=== PATIENT | female | born 1990 | race Caucasian/White ===

== ENCOUNTER 2016-08-05 01:10 | Emergency (ER) | payer OTHER ==
[~2016-08-05] VITALS: Ht 180.3 cm; Wt 54.4 kg
--- NOTE | ~2016-08-05 | EKG ---
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
[~2016-08-05 01:10] MED LIST: NORCO 5-325 TA1 EACH PO
[2016-08-05 01:33] LABS: URINE BILIRUBIN NEGATIVE (Negative); URINE BLOOD TRACE (Negative); URINE COLOR YELLOW; URINE GLUCOSE-RANDOM* NEGATIVE (Negative); URINE KETONES NEGATIVE (Negative); URINE LEUKOCYTES-REFLEX NEGATIVE (Negative); URINE PROTEIN (DIPSTICK) NEGATIVE (Negative); URINE SPECIFIC GRAVITY <= 1.005 (1.003-1.035); URINE UROBILINOGEN 0.2 E.U./dl (0.2-1.0)
[2016-08-05 01:41] LABS: ABSOLUTE NEUTROPHILS 4.6 thou/uL (1.4-8.2); BASOPHILS 1.3 % (0.0-2.0); EOSINOPHILS 8.5 % (0.0-3.0); HEMATOCRIT 39.9 % (37.0-47.0); HEMOGLOBIN 13.5 gm/dL (12.0-15.0); LYMPHOCYTES 38.7 % (24.0-44.0); MCH 31.1 pg (26.0-34.0); MCHC 33.9 g/dL (28.0-37.0); MCV 91.8 fL (80.0-100.0); PLATELET COUNT 199 thou/uL (150-400); POLYS 45.5 % (36.0-66.0); RBC 4.34 mil/uL (4.20-5.00); RDW 13.1 % (10.5-14.5); WBC 10.1 thou/uL (4.0-11.0)
[2016-08-05 01:46] LABS: MANUAL DIFF NO
[2016-08-05 01:49] LABS: ANION GAP 8 mmol/L (7-16); BUN 14 mg/dL (7-18); CALCIUM 8.8 mg/dL (8.5-10.1); CHLORIDE 105 mmol/L (98-107); CO2 28 mmol/L (21-32); CREATININE 0.8 mg/dL (0.6-1.3); GLUCOSE 124 mg/dL (70-99); POTASSIUM 3.1 mmol/L (3.5-5.1); SODIUM 141 mmol/L (136-145)
[2016-08-05 01:53] LABS: APTT 27.6 Seconds (24.5-32.8); PROTIME 10.8 Seconds (9.3-11.4)
[2016-08-05 02:01] LABS: ALBUMIN 3.8 g/dL (3.4-5.0); ALKALINE PHOSPHATASE 85 U/L (46-116); NT-PRO BRAIN NAT PEPTIDE 58 pg/mL (<300); SGPT 13 U/L (30-65); TOTAL BILIRUBIN 0.2 mg/dL (<0.1-1.0); TOTAL PROTEIN 6.9 g/dL (6.4-8.2); TROPONIN-I < 0.04 ng/mL (<0.04-0.07)
[2016-08-05 02:39] LABS: SGOT 18 U/L (15-37)
[2016-08-05] MEDS ORDERED: ZOFRAN ODT4 MG PO (03:57)
[2016-08-05 04:00] VITALS: BP 116/67
== END 2016-08-05 04:06 | disposition home or self-care (01) ==
LOC: ER 01:10
PROVIDERS: Emergency Medicine
DX: R07.9 Chest pain, unspecified (principal); R19.7 Diarrhea, unspecified; R11.0 Nausea; Q87.40 Marfan syndrome, unspecified; Q61.3 Polycystic kidney, unspecified; M41.9 Scoliosis, unspecified; Z88.0 Allergy status to penicillin; Z91.030 Bee allergy status; Z91.013 Allergy to seafood

== ENCOUNTER 2018-09-05 18:11 | Emergency (ER) | payer OTHER ==
[~2018-09-05] VITALS: Ht 180.3 cm; Wt 65.3 kg
[~2018-09-05 18:11] MED LIST changes: +ZOFRAN ODT4 MG PO
[2018-09-05 18:44] LABS: HEMATOCRIT 40.7 % (37.0-47.0); HEMOGLOBIN 13.9 gm/dL (12.0-15.0); MCH 31.3 pg (26.0-34.0); MCHC 34.2 g/dL (28.0-37.0); MCV 91.3 fL (80.0-100.0); PLATELET COUNT 197 thou/uL (150-400); RBC 4.45 mil/uL (4.20-5.00); RDW 13.8 % (10.5-14.5); WBC 8.7 thou/uL (4.0-11.0)
[2018-09-05 18:55] LABS: ANION GAP 13 mmol/L (7-16); BUN 6 mg/dL (7-18); CALCIUM 9.1 mg/dL (8.5-10.1); CHLORIDE 103 mmol/L (98-107); CO2 24 mmol/L (21-32); CREATININE 0.7 mg/dL (0.6-1.0); GLUCOSE 112 mg/dL (74-106); POTASSIUM 3.4 mmol/L (3.5-5.1); SODIUM 140 mmol/L (136-145)
[2018-09-05 19:05] LABS: ALBUMIN 3.8 g/dL (3.4-5.0); SGOT 16 U/L (15-37); SGPT 16 U/L (30-65); TOTAL BILIRUBIN 0.3 mg/dL (<0.1-1.0); TOTAL PROTEIN 7.4 g/dL (6.4-8.2); TROPONIN-I <0.06 ng/mL (<0.06)
[2018-09-05 19:08] LABS: ABSOLUTE NEUTROPHILS 6.4 thou/uL (1.4-8.2)
[2018-09-05] MEDS ORDERED: KLOR-CON 1010 MEQ PO (20:41)
[2018-09-05] MEDS ORDERED: BUTALB-APAP-CA1 EACH PO (20:41)
[2018-09-05 21:05] VITALS: BP 119/67
--- NOTE | 2018-09-06 08:00 | EKG ---
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1990 Requested By: Order Number: [id number] MD: Diaz Matamoros Measurements Intervals [place] Rate: 97 P: 72 MO: 124 QRS: 81 QRSD: 96 T: 51 QT: 385 QTc: 489 Interpretive Statements Sinus rhythm RSR' in V1 or V2, probably normal variant Compared to ECG 08/05/2016 01:16:13 Sinus tachycardia no longer present Electronically Signed On 09-06-2018 8:00:17 CDT by Diaz Matamoros [email or web address] ��������������������������������������������� <ELECTRONICALLY SIGNED> ���������������������������������������� By: Diaz Matamoros MD, [facility] ��������������������������������������������� 09/06/18 0800 29 29 Diaz Matamoros MD, FAC /EPI
== END 2018-09-05 21:06 | disposition home or self-care (01) ==
LOC: ER 18:11
PROVIDERS: Emergency Medicine
DX: R07.89 Other chest pain (principal); R51 Headache; R42 Dizziness and giddiness; M41.9 Scoliosis, unspecified; Z88.0 Allergy status to penicillin; Z88.8 Allergy status to other drugs, medicaments and biological substances; Z91.030 Bee allergy status; Z91.013 Allergy to seafood